=== PATIENT | female | born 1995 | race Caucasian/White ===

== ENCOUNTER → 2016-12-14 | Outpatient (CLI) | payer BC ==
[2016-12-14 15:28] LABS: BASO % 0.3 %; BASO ABS # 0.03 K/uL (0-0.2); COMPLETE YES; EOS % 0.6 %; HEMATOCRIT 36.7 % (37-47); IG% 0.2 %; LYMPH % 26.4 %; LYMPH ABS # 2.97 K/uL (1.2-3.4); MEAN CELL VOLUME 93.9 fL (80-100); MEAN CORPUSCULAR HEMOGLOBIN 31.7 pg (25-34); MEAN CORPUSCULAR HGB CONC 33.8 g/dl (32-36); MEAN PLATELET VOLUME 10.4 fL (7.4-10.4); MONO % 9.3 %; NEUT % 63.2 %; PLATELET COUNT 311 K/uL (130-400); RED BLOOD COUNT 3.91 M/uL (4.2-5.4); WHITE BLOOD COUNT 11.24 K/uL (4.8-10.8)
[2016-12-14 16:00] LABS: ALT/SGPT 18 U/L (12-78); BLOOD UREA NITROGEN 16 mg/dl (7-18); BUN/CREATININE RATIO 25.2 (10-20); CALCIUM 9.6 mg/dl (8.5-10.1); CARBON DIOXIDE 26 mmol/L (21-32); CHLORIDE 106 mmol/L (98-107); CREATININE 0.62 mg/dl (0.60-1.20); GLUCOSE 75 mg/dl (70-99); MAGNESIUM 1.9 mg/dl (1.8-2.4); POTASSIUM 4.1 mmol/L (3.5-5.1); SODIUM 141 mmol/L (136-145)
[2016-12-14 16:10] LABS: ALKALINE PHOSPHATASE 64 U/L (45-117); AST/SGOT 20 U/L (15-37); FERRITIN 22.7 ng/ml (8.0-388.0)
== END | disposition home or self-care (01) ==
LOC: C.LAB1850 14:26
PROVIDERS: ATTEND Nurse Practitioner Family
DX: E55.9 Vitamin D deficiency, unspecified (principal); R07.9 Chest pain, unspecified

== ENCOUNTER 2018-01-22 06:36 | Emergency (ER) | payer BC ==
[~2018-01-22] VITALS: Ht 152.4 cm; Wt 61.7 kg
[2018-01-22 07:25] VITALS: Ht 152.4 cm; Wt 61.7 kg
[2018-01-22] MEDS ORDERED: ONDANSETRON 4MG OD TAB PO ONE (07:30)
[2018-01-22 07:53] LABS: BASO % 0.3 %; BASO ABS # 0.03 K/uL (0-0.2); EOS % 0.5 %; EOS ABS # 0.05 K/uL (0-0.5); HEMATOCRIT 38.2 % (37-47); HEMOGLOBIN 13.1 g/dL (12.0-16.0); IG# 0.02 K/uL (0.00-0.02); LYMPH % 23.1 %; LYMPH ABS # 2.13 K/uL (1.2-3.4); MEAN CELL VOLUME 95.7 fL (80-100); MEAN CORPUSCULAR HEMOGLOBIN 32.8 pg (25-34); MEAN CORPUSCULAR HGB CONC 34.3 g/dl (32-36); MEAN PLATELET VOLUME 9.9 fL (7.4-10.4); MONO % 7.7 %; MONO ABS # 0.71 K/uL (0.11-0.59); NEUT % 68.2 %; NEUT ABS # 6.28 K/uL (1.4-6.5); PLATELET COUNT 307 K/uL (130-400); RED CELL DISTRIBUTION WIDTH CV 13.1 % (11.5-14.5); RED CELL DISTRIBUTION WIDTH SD 45.9 fL (36.4-46.3); WHITE BLOOD COUNT 9.22 K/uL (4.8-10.8)
[2018-01-22 08:16] LABS: CALCIUM 8.9 mg/dl (8.5-10.1); CREATININE 0.65 mg/dl (0.60-1.20); POTASSIUM 3.3 mmol/L (3.5-5.1)
--- NOTE | 2018-01-22 09:16 | DIAGNOSTIC IMAGING REPORT ---
LIMITED (US) CLINICAL HISTORY: Positive test. Cramping. COMPARISON STUDY: No previous studies for comparison. TECHNIQUE: Transabdominal and transvaginal sonography of the pelvis was performed. FINDINGS: The uterus measures 9.3 x 3 x 4.5 cm. No intrauterine gestational sac is noted. Endometrium measures 2.1 cm in thickness. No adnexal mass is identified. A small amount of simple appearing fluid is noted within the pelvis. The right ovary measures 3 x 1.7 x 2.2 cm and the left measures 3.1 x 2.1 x 2.2 cm. There is color flow within each ovary. A 2.4 cm hypoechoic left ovarian lesion is noted. IMPRESSION: 1. No intrauterine gestational sac identified. Thickened endometrium, measuring 2.1 cm. Given positive test, differential considerations include a normal early intrauterine gestation, missed spontaneous and sonographically occult ectopic . Close clinical follow-up including serial beta hCG levels and follow-up pelvic ultrasound is recommended. 2. Suspected 2.4 cm left ovarian corpus luteal cyst. 3. Small amount of fluid within the pelvis. Electronically signed by: Nacho Mccracken M.D. 01/22/2018 9:14 AM Dictated Date/Time: 01/22/2018 9:09 AM
[2018-01-22 11:00] VITALS: BP 101/43; PULSE 81; TEMP 36.7; O2SAT 100
--- NOTE | 2018-01-22 15:07 | EMERGENCY ROOM VISIT NOTE ---
ED Visit Note First contact with patient: 06:53 Chief Complaint: Abdominal cramping, nausea and positive . History of Present Illness: Ms. Ayala is a 22 year-old female who ambulates into the ED complaining of mid lower abdominal pain. Historically patient reports she has a history of polycystic ovary syndrome. Patient is para 0, 0. Her last menstrual cycle ended December 15; patient reports this was normal duration and intensity for her. Patient reports a acute onset of mid lower quadrant abdominal pain that woke her from sleep this morning and started approximately 2 hours ago. Since that time the pain has been constant but intermittent. The pain is currently described as cramping. The pain is nonradiating. She rates her discomfort 2/ 10. She has not identified any aggravating or alleviating factors related to her discomfort. She has not taken any medications for her discomfort prior to arrival at the hospital. Associated with the pain there has been nausea without vomiting. Additionally she reports she has a small amount of whitish vaginal discharge; she reports this is normal and starts prior to her menstrual cycle. Patient denies fevers, chills, sweats, skin eruptions, skin color changes, upper respiratory tract symptoms, shortness of breath, chest pain, diarrhea, constipation, rectal bleeding, black/tarry stools, urinary symptoms, hematuria, vaginal bleeding, painful intercourse, postcoital bleeding, back/flank pain. Review of Systems: As noted above in history of present illness. All body systems were reviewed and found to be negative as noted above. Past Medical History: As previously noted, asthma, status post tonsillectomy. Current Medications: Patient denies. Allergies to Medications: Patient denies. Social History: Patient is currently employed; she lives with her and feels safe in her home environment; she denies tobacco and alcohol use. Physical Examination: Vital Signs: Date Time Temp Pulse Resp B/P (MAP) Pulse Ox O2 Delivery O2 Flow Rate FiO2 01/22/18 11:00 36.7 81 20 101/43 100 01/22/18 10:41 81 20 101/43 01/22/18 10:36 86 24 01/22/18 10:31 81 25 01/22/18 10:26 85 24 01/22/18 10:21 82 23 01/22/18 10:16 83 22 01/22/18 10:11 103 15 01/22/18 10:06 108 20 4/9/18 10:01 80 20 01/22/18 09:56 83 19 01/22/18 09:51 110 20 01/22/18 09:46 80 21 01/22/18 09:43 69 18 99/63 01/22/18 09:41 81 24 01/22/18 09:36 85 22 01/22/18 09:31 85 14 01/22/18 09:28 99/63 01/22/18 08:11 93 26 01/22/18 08:06 90 22 01/22/18 08:01 90 24 01/22/18 07:56 93 26 01/22/18 07:51 123 24 01/22/18 07:46 85 16 01/22/18 07:41 90 21 01/22/18 07:37 99 01/22/18 07:36 119 22 197/117 01/22/18 06:40 36.7 105 18 129/75 100 Room Air GENERAL: 22-year-old female in mild distress due to symptoms, nontoxic-appearing , afebrile and hemodynamically stable. NEUROLOGICAL: Awake, alert and oriented to person, place and time. Answering questions appropriately and following commands. Normal gait. Good hand eye coordination. SKIN: Warm, dry and pink. No soft tissue eruptions or trauma noted. HEENT: Atraumatic and normocephalic. PERRLA. Sclera white and conjunctiva pink. Oral cavity moist and pink. Pharynx is nonerythematous or edematous. Speech normal. No lymphadenopathy. Trachea midline. No jugular venous distention. BACK: No tenderness over the bony spine. No CVA tenderness. THORAX: Lungs sounds are clear to auscultation and equal bilaterally with symmetrical chest wall. No wheezing, rales or rhonchi. No crepitus, tenderness , subcutaneous air or deformities noted. HEART: Regular rate and rhythm. No gallops, rubs or murmurs are appreciated. ABDOMEN: Flat, soft and nontender. Positive bowel sounds in all quadrants. No guarding, rigidity or organomegaly. EXTREMITIES: Moves all extremities well on command and with purpose. All distal neurovascular statuses are intact and equal bilaterally. ED Course: Patient is assessed as noted above. Laboratory Testing: Test 01/22/18 06:50 01/22/18 06:52 01/22/18 07:35 Range/Units Urine Color YELLOW Urine Appearance CLOUDY CLEAR Urine pH 7.0 4.5-7.5 Urine Specific [place] 1.023 1.000-1.030 Urine Protein NEG NEG Urine Glucose (UA) NEG NEG Urine Ketones NEG NEG Urine Occult Blood 1+ NEG Urine Nitrite NEG NEG Urine Bilirubin NEG NEG Urine Urobilinogen NEG NEG Urine Leukocyte Esterase MODERATE NEG Urine WBC (Auto) 10-30 0-5 /hpf Urine RBC (Auto) 10-30 0-4 /hpf Urine Hyaline Casts (Auto) 5-10 0-5 /lpf Urine Epithelial Cells (Auto) >30 0-5 /lpf Urine Bacteria (Auto) 2+ NEG Human Chorionic Gonadotropin, Quant 57 mIU/mL White Blood Count 9.22 4.8-10.8 K/uL Red Blood Count 3.99 4.2-5.4 M/uL Hemoglobin 13.1 12.0-16.0 g/dL Hematocrit 38.2 37-47 % Mean Corpuscular Volume 95.7 80-100 fL Mean Corpuscular Hemoglobin 32.8 25-34 pg Mean Corpuscular Hemoglobin Concent 34.3 32-36 g/dl Platelet Count 307 130-400 K/uL Mean Platelet Volume 9.9 7.4-10.4 fL Neutrophils (%) (Auto) 68.2 % Lymphocytes (%) (Auto) 23.1 % Monocytes (%) (Auto) 7.7 % Eosinophils (%) (Auto) 0.5 % Basophils (%) (Auto) 0.3 % Neutrophils # (Auto) 6.28 1.4-6.5 K/uL Lymphocytes # (Auto) 2.13 1.2-3.4 K/uL Monocytes # (Auto) 0.71 0.11-0.59 K/uL Eosinophils # (Auto) 0.05 0-0.5 K/uL Basophils # (Auto) 0.03 0-0.2 K/uL RDW Standard Deviation 45.9 36.4-46.3 fL RDW Coefficient of Variation 13.1 11.5-14.5 % Immature Granulocyte % (Auto) 0.2 % Immature Granulocyte # (Auto) 0.02 0.00-0.02 K/uL Prothrombin Time 10.4 9.0-12.0 SECONDS Prothromb Time International Ratio 1.0 0.9-1.1 Activated Partial Thromboplast Time 26.0 21.0-31.0 SECONDS Partial Thromboplastin Ratio 1.0 Sodium Level 137 136-145 mmol/L Potassium Level 3.3 3.5-5.1 mmol/L Chloride Level 106 98-107 mmol/L Carbon Dioxide Level 25 21-32 mmol/L Anion Gap 6.0 3-11 mmol/L Blood Urea Nitrogen 9 7-18 mg/dl Creatinine 0.65 0.60-1.20 mg/dl Est Creatinine Clear Calc Drug Dose 111.4 ml/min Estimated GFR () 146.1 Estimated GFR (Non- 126.0 BUN/Creatinine Ratio 13.0 10-20 Random Glucose 88 70-99 mg/dl Calcium Level 8.9 8.5-10.1 mg/dl ultrasound: Was reviewed by myself and read by the radiologist showing no intrauterine gestational sac identified, thickened endometrium measuring 2.1 cm , suspected 2.4 cm left ovarian corpus luteum cyst and small amount of free fluid within the pelvis. Initially an IV lock was started and patient received 4 mg of Zofran ODT; patient was offered pain medication and refused. Patient was reassessed multiple times during her stay in the emergency department. Patient's case was reviewed with Dr. Britt; we agreed on diagnostic approach, treatment, disposition and plan. Patient's case was consulted with Dr. Quoc Morel, motion graphics designer; she recommended office follow-up visit with repeat quantitative beta-hCG in 2 days. Patient was educated about today's findings and instructed on her treatment plan ; she verbalized understanding and agreement with this plan. Clinical Impression: Abdominal pain. . Decision-Making: Initially my differential diagnosis I considered acute appendicitis, ovarian torsion, ovarian cyst rupture, ectopic , cystitis and other causes. Disposition: Patient discharged home in stable condition; prior to departure she was reassessed and subjectively reported and subjectively reported she was feeling better and rated her discomfort 2/10 and reported resolution of nausea. Plan: Patient was encouraged to use 650 mg of acetaminophen every 6 hours as needed for pain and avoid NSAIDs. Patient was encouraged to continue with her normal daily activities. Patient was encouraged to start an [id number] multivitamin. Patient was informed that Dr. Morel's office would contact her for office follow -up in 2 days. Patient was encouraged to return the ED for worsening/uncontrolled pain, uncontrolled nausea/vomiting, vaginal bleeding or any new/concerning symptoms.
== END 2018-01-22 11:00 | disposition home or self-care (01) ==
LOC: C.EDB 06:37
DX: R10.30 Lower abdominal pain, unspecified (principal); Z32.01 Encounter for pregnancy test, result positive; E28.2 Polycystic ovarian syndrome; J45.909 Unspecified asthma, uncomplicated

== ENCOUNTER → 2018-01-24 | Outpatient (CLI) | payer BC | END | disposition home or self-care (01) | LOC: C.LAB1850 07:38 | PROVIDERS: ATTEND Obstetrics & Gynecology | DX: O36.80X0 Pregnancy with inconclusive fetal viability, not applicable or unspecified (principal) ==

== ENCOUNTER → 2018-02-19 | Outpatient (CLI) | payer BC | END | disposition home or self-care (01) | LOC: C.LABSPEC 10:52 | PROVIDERS: ATTEND Obstetrics & Gynecology | DX: Z34.01 Encounter for supervision of normal first pregnancy, first trimester (principal) ==

== ENCOUNTER → 2018-02-27 | Outpatient (CLI) | payer BC | END | disposition home or self-care (01) | LOC: C.PAPS 13:58 | PROVIDERS: ATTEND Obstetrics & Gynecology | DX: Z34.01 Encounter for supervision of normal first pregnancy, first trimester (principal); Z3A.00 Weeks of gestation of pregnancy not specified ==

== ENCOUNTER → 2018-02-27 | Outpatient (CLI) | payer BC ==
[2018-02-27 12:22] LABS: BASO % 0.1 %; BASO ABS # 0.01 K/uL (0-0.2); EOS % 1.4 %; EOS ABS # 0.16 K/uL (0-0.5); HEMATOCRIT 35.4 % (37-47); HEMOGLOBIN 12.1 g/dL (12.0-16.0); IG# 0.03 K/uL (0.00-0.02); LYMPH % 15.1 %; LYMPH ABS # 1.71 K/uL (1.2-3.4); MEAN CELL VOLUME 94.7 fL (80-100); MEAN CORPUSCULAR HEMOGLOBIN 32.4 pg (25-34); MEAN CORPUSCULAR HGB CONC 34.2 g/dl (32-36); MONO % 11.6 %; MONO ABS # 1.31 K/uL (0.11-0.59); NEUT % 71.5 %; NEUT ABS # 8.09 K/uL (1.4-6.5); PLATELET COUNT 322 K/uL (130-400); RED CELL DISTRIBUTION WIDTH SD 44.7 fL (36.4-46.3); WHITE BLOOD COUNT 11.31 K/uL (4.8-10.8)
== END | disposition home or self-care (01) ==
LOC: C.LAB1850 10:49
PROVIDERS: ATTEND Obstetrics & Gynecology
DX: Z34.01 Encounter for supervision of normal first pregnancy, first trimester (principal); Z3A.00 Weeks of gestation of pregnancy not specified

== ENCOUNTER 2021-01-25 07:38 | Inpatient (IN) ==
[2021-01-25] MEDS ORDERED: OXYTOCIN 30 UNITS/500 ML BAG IV PRN ×3 (07:48→20:27)
--- NOTE | 2021-01-25 08:02 | History & Physical Report ---
Date of Service January 25, 2021 Assessment & Plan (1) Encounter for induction of labor: PNL: Rh pos, RI, GBS neg, COVID negative Admit, labs, start IV Epidural when desired; anesthesiology consult placed Proceed with induction of labor per Pitocin augmentation protocol. Anticipate (2) Proteinuria affecting : CMP on admission Vital signs stable Admission and Anticipated Discharge Date Admission Date: January 25, 2021 History of Present Illness Primary Care Provider: Rhina Olsen DO Nancy Ayala is a 25 y/o female currently at 39 +2 WGA with an CHARLES 01/30/21 as determined by US #1 who is here for IOL. Her was complicated by gestational proteinuria. She does report an episode of headache with associated blurred vision x1 about 1 week ago but this episode resolved after taking Tylenol; no recurrent or persistent headaches or vision changes. No BARBER or vision changes at this time. + bilateral pedal edema; no associated calf pain or swelling. No abdominal pain. - contractions; + movement; - fluid loss; - bloody show Had regular appointments with OB. Blood type: A+ Antibody screen: neg Labs 06/19/2020 Rubella: immune VDRL/RPR: NR Gonorrhea: neg Chlamydia: neg HIV: neg HbSAg: neg GBS: negative 01/08/21 COVID-19 negative today (01/25/2021) Other screens: panorama 07/24/20 low risk Allergies Allergy/AdvReac Type Severity Reaction Status Date / Time No Known Allergies Allergy Verified 01/22/21 11:16 Home Medications Medication Instructions Recorded Confirmed Type Vitamin 1 tab PO DAILY 10/01/18 01/25/21 History Patient History Medical History Gestational proteinuria Surgical History Hx of tonsillectomy Family History (Updated 06/10/20 @ 08:03 by Shira Mills) Grandmother (Maternal) Diabetes Father Hypertension Grandfather (Maternal) Myocardial infarction Mother Preeclampsia labor Social History Smoking Status: Never smoker Second Hand Exposure: No; Hx Alcohol Use: No Hx Substance Use: No Preferred Language: Bulgarian Communication Ability: Effective Health And Wellness Coordinator Required: No Beliefs That Will Affect Care: None marital status: marital status details: Ashish (30) [phone] Current Living Situation: Family Current Living Situation Comment: lives with spouse, daughter, no pets. current occupational status: employed current occupation: [employer] Other Information That Helps Us Care for You: No Feels Safe at Home: Yes Safety Concerns: Feels Safe At This Time Assistive Devices: None Review of Systems Denies fever or chills. Denies shortness of breath or cough. Denies chest pain. Denies breast pain. Denies dysuria or hematuria. + bilateral pedal edema. Denies leg pain or leg swelling. Denies current headache or changes in vision (otherwise see HPI). Physical Exam Physical Exam: General: Alert, oriented. No acute distress. Cardiac: Regular rate and rhythm, no murmurs/rubs/gallops. Respiratory: Clear to auscultation bilaterally a/p, no wheezes/rales/rhonchi. No increased work of breathing. Symmetrical chest rise. No respiratory distress. Abdomen: Gravid. Vertex position. + heart tones. - palpable contractions. EFW 7-8# Pelvic: Dilation 3 cm; Effacement 50%; Station -2; mid and moderate per Dr. Wayne External FHT and external uterine monitors used; Category I tracing; mod. FHT variability. Lower Extremities: 1-2+ bilateral pedal edema. No deep calf pain. Results & Data ([facility]) Vital Signs (Past 12 Hours) Vital Signs Pulse BP 01/25/21 07:53 112 H 119/76 Laboratory Results Labs at admission today 01/25/21 01/25/21 01/25/21 Range/Units 08:23 08:23 08:04 WBC (4.8-10.8) K/uL RBC (4.2-5.4) M/uL Hgb (12.0-16.0) g/dL Hct (37-47) % MCV (80-100) fL MCH (25-34) pg MCHC (32-36) g/dL RDW Std Deviation (36.4-46.3) fL RDW Coeff of Osmar (11.5-14.5) % Plt Count (130-400) K/uL MPV (7.4-10.4) fL Sodium 139 (136-145) mmol/L Potassium 3.3 L (3.5-5.1) mmol/L Chloride 108 H (98-107) mmol/L Carbon Dioxide 23 (21-32) mmol/L Anion Gap 8.0 (3-11) BUN 6 L (7-18) mg/dl Creatinine 0.37 L (0.6-1.2) mg/dl Est Cr Clr Drug Dosing 224.7 ml/min Est GFR ( Amer) > 150.0 Est GFR (Non-Af Amer) 148.5 BUN/Creatinine Ratio 15.9 (10-20) Glucose 96 (70-99) mg/dl Calcium 8.7 (8.5-10.1) mg/dl Total Bilirubin 0.3 (0.2-1) mg/dl AST 16 (15-37) U/L ALT 15 (12-78) U/L Alkaline Phosphatase 167 H (45-117) U/L Total Protein 6.4 (6.4-8.2) gm/dl Albumin 2.5 L (3.4-5.0) gm/dl Globulin 3.9 (2.5-4.0) gm/dl Albumin/Globulin Ratio 0.6 L (0.9-2) COVID-19 Eval Order Covid19 IDNow atMRIC SARS-CoV-2, RNA, NAAT NEGATIVE (NEGATIVE) 01/25/21 Range/Units 08:02 WBC 11.20 H (4.8-10.8) K/uL RBC 3.68 L (4.2-5.4) M/uL Hgb 10.8 L (12.0-16.0) g/dL Hct 33.1 L (37-47) % MCV 89.9 (80-100) fL MCH 29.3 (25-34) pg MCHC 32.6 (32-36) g/dL RDW Std Deviation 46.8 H (36.4-46.3) fL RDW Coeff of Osmar 14.3 (11.5-14.5) % Plt Count 339 (130-400) K/uL MPV 10.0 (7.4-10.4) fL Sodium (136-145) mmol/L Potassium (3.5-5.1) mmol/L Chloride (98-107) mmol/L Carbon Dioxide (21-32) mmol/L Anion Gap (3-11) BUN (7-18) mg/dl Creatinine (0.6-1.2) mg/dl Est Cr Clr Drug Dosing ml/min Est GFR ( Amer) Est GFR (Non-Af Amer) BUN/Creatinine Ratio (10-20) Glucose (70-99) mg/dl Calcium (8.5-10.1) mg/dl Total Bilirubin (0.2-1) mg/dl AST (15-37) U/L ALT (12-78) U/L Alkaline Phosphatase (45-117) U/L Total Protein (6.4-8.2) gm/dl Albumin (3.4-5.0) gm/dl Globulin (2.5-4.0) gm/dl Albumin/Globulin Ratio (0.9-2) COVID-19 Eval Order SARS-CoV-2, RNA, NAAT (NEGATIVE) Code Status & VTE Plan VTE Prophylaxis Plan VTE Prophylaxis will be ordered: No Supervising Physician Co-Signing Physician Notes Resident Physician Supervision Note: I interviewed and examined the patient. Discussed with Dr. Barron and agree with findings and plan as documented in the note. Any exceptions or clarifications are listed here: Patient is a with gestational proteinuria. No s/s of pet as of yet, labs have all been negative. In her last , she developed proteinuria just like this and then eventually diagnosed with pet. She now presents for induction for this at 39 2/7. cx favorable. fetus category one. pitocin induction and arom as indicated. Epidural on demand. Anticipate . Labs all normal today. Dips trace protein. A few weeks ago dipped +1 and 24 hour urine was 400mg. Monday in the office dipped +2 but pressures normal and labs normal. Documented By: Caroline Wayne MD, FACOG Resident Activity Tracking Resident Involvement: Resident Care Provided Care Provided: OB Delivery
[2021-01-25 08:14] LABS: Hematocrit (blood only) 33.1 % (37-47); Hemoglobin 10.8 g/dL (12.0-16.0); Mean Corpuscular Hemoglobin 29.3 pg (25-34); Mean Corpuscular Hgb Conc 32.6 g/dL (32-36); Mean Corpuscular Volume 89.9 fL (80-100); Platelet Count 339 K/uL (130-400); RDW Coefficient of Variation 14.3 % (11.5-14.5); RDW Standard Deviation 46.8 fL (36.4-46.3); Red Blood Count 3.68 M/uL (4.2-5.4)
[2021-01-25 08:31] LABS: Alanine Aminotransferase 15 U/L (12-78); Albumin Level 2.5 gm/dl (3.4-5.0); Aspartate Aminotransferase 16 U/L (15-37); BUN Creatinine Ratio 15.9 (10-20); Blood Urea Nitrogen 6 mg/dl (7-18); Calcium 8.7 mg/dl (8.5-10.1); Carbon Dioxide 23 mmol/L (21-32); Chloride 108 mmol/L (98-107); Creatinine Clr Calc Pharmacy 224.7 ml/min; Est GFR (African American) > 150.0; Est GFR (Non-African American) 148.5; Glucose 96 mg/dl (70-99); Potassium 3.3 mmol/L (3.5-5.1); Sodium 139 mmol/L (136-145)
[2021-01-25 08:34] LABS: Albumin Globulin Ratio 0.6 (0.9-2); Alkaline Phosphatase 167 U/L (45-117); Bilirubin,Total 0.3 mg/dl (0.2-1); Globulin 3.9 gm/dl (2.5-4.0); Total Protein 6.4 gm/dl (6.4-8.2)
[2021-01-25] MEDS: LACTATED RINGER'S 1,000 ML IV PRN ×3 (08:51→18:59)
[2021-01-25] MEDS ORDERED: SODIUM CHLORIDE 0.9% INJ 10 ML VIAL ONE (11:23)
[2021-01-25] MEDS ORDERED: ePHEDrine sulfate 50 MG/ML AMP ONE (11:23)
[2021-01-25] MEDS ORDERED: fentaNYL 2MCG/ML ROPIVACAINE 1.25MG/ML 100 ML BAG EPI ONE (11:24)
[2021-01-25] MEDS ORDERED: fentaNYL citrate 100 MCG/2 ML VIAL ONE (11:24)
[2021-01-25] MEDS ORDERED: BUPIVACAINE 0.25% 30 ML VIAL ONE (11:24)
--- NOTE | 2021-01-25 11:49 | Anesthesiology Consultation ---
Date of Service January 25, 2021 Assessment & Plan (1) Encounter for pre-operative examination: Chart Review Chart Review: Acceptable Risk for Labor Epidural History Height/Weight Height: 5 ft Weight: 84.822 kg Allergies Allergy/AdvReac Type Severity Reaction Status Date / Time No Known Allergies Allergy Verified 01/22/21 11:16 Medications Home Medications Medication Instructions Recorded Confirmed Last Taken Vitamin 1 tab PO DAILY 10/01/18 01/25/21 09/30/18 08:00 Active Medications Generic Name Dose Route Start Last Admin Trade Name Freq PRN Reason Stop Dose Admin Oxytocin 30 units in 500 mls @ 7 mls/hr 01/25/21 07:48 01/25/21 11:00 Pitocin IV 01/27/21 07:47 0.42 units/hr .Q24H PRN 7 mls/hr Labor Induction/Augmentation Titration Protocol 0.42 UNITS/HR Lactated Ringer's 1,000 mls @ 125 mls/hr 01/25/21 07:48 01/25/21 11:25 Lr IV 01/27/21 07:47 999 mls/hr .Q8H PRN Infusion L&D Protocol Protocol Past Medical History Medical History Gestational proteinuria Past Family History Family History Grandmother (Maternal) Diabetes Father Hypertension Grandfather (Maternal) Myocardial infarction Mother Preeclampsia labor Past Surgical History Surgical History Hx of tonsillectomy Social History Smoking Status: Never smoker Hx Alcohol Use: No Hx Substance Use: No substance use type: does not use Physical Exam Vital Signs Last Vital Signs Temp 36.7 C 01/25/21 10:56 Pulse 90 01/25/21 10:56 Resp 20 01/25/21 10:56 BP 113/77 01/25/21 10:56 Testing Laboratory Results 01/25/21 08:02 01/25/21 08:04
[2021-01-25] MEDS ORDERED: ONDANSETRON INJ 2 MG/ML 2 ML VIAL IV PRN (12:10)
[2021-01-25] MEDS ORDERED: ePHEDrine sulfate 50 MG/ML AMP IV PRN (12:10)
[2021-01-25] MEDS ORDERED: NALOXONE HCL 1 MG in SODIUM CHLORIDE 0.9% 1000ML 1,000 ML IV PRN (12:10)
[2021-01-25] MEDS ORDERED: NALOXONE HCL 0.4 MG/1 ML VIAL/CARP IV PRN (12:10)
--- NOTE | 2021-01-25 12:43 | Labor Progress Brief Note ---
Date of Service January 25, 2021 Subjective comfortable after epidural Assessment & Plan (1) Proteinuria affecting : (2) Encounter for induction of labor: Admission and Anticipated Discharge Date Admission Date: January 25, 2021 Continue current management. Fetus category one. anticipate . Physical Exam Constitutional: WD/WN, vitals as above Psychiatric: A+Ox3, euthymic affect Genitourinary: cx--3-4/50/-2 arom--copious clear efm--140s wtih mod variability, accels to 160s, no decels toco--q2-4min, pit at 7 Results & Data ([facility]) Vital Signs (Past 12 Hours) Vital Signs Temp Pulse Resp BP Pulse Ox 01/25/21 12:37 108 H 100 01/25/21 12:32 86 113/70 96 01/25/21 12:28 88 116/67 01/25/21 12:27 93 H 98 01/25/21 12:22 107 H 98 01/25/21 12:21 86 112/66 01/25/21 12:17 96 H 98 01/25/21 12:15 91 H 110/59 L 01/25/21 12:13 102 H 113/64 01/25/21 12:12 102 H 97 01/25/21 12:11 92 H 115/64 01/25/21 12:09 92 H 116/66 01/25/21 12:07 80 117/71 98 01/25/21 12:05 86 119/65 01/25/21 12:02 105 H 97 01/25/21 11:57 125 H 100 01/25/21 11:52 112 H 99 01/25/21 11:47 112 H 100 01/25/21 10:56 36.7 C 90 20 113/77 01/25/21 10:01 106 H 20 113/77 01/25/21 07:55 36.7 C 112 H 20 119/76 01/25/21 07:53 112 H 119/76 Coding Level of Care Code None Diagnoses Proteinuria affecting O12.10 Encounter for induction of labor Z34.90
[2021-01-25] MEDS: fentaNYL 2MCG/ML ROPIVACAINE 1.25MG/ML 100 ML BAG EPI PRN ×2 (16:47→18:18)
[2021-01-25] MEDS ORDERED: NURSING L&D Epidural Breakthrough Pain Update ONE (16:58)
--- NOTE | 2021-01-25 17:05 | Labor Progress Brief Note ---
Date of Service January 25, 2021 Subjective Is starting to note contractions but not pressure. Assessment & Plan (1) Encounter for induction of labor: Admission and Anticipated Discharge Date Admission Date: January 25, 2021 Continue current management. fetus catgory one. Anticipate . Physical Exam Constitutional: WD/WN, vitals as above Psychiatric: A+Ox3, euthymic affect Genitourinary: cx--6-7/100/-2 toco--q 2-3 min efm--category one strip, accels present Results & Data ([facility]) Vital Signs (Past 12 Hours) Vital Signs Temp Pulse Resp BP Pulse Ox 01/25/21 17:02 93 H 97 01/25/21 16:57 89 97 01/25/21 16:52 95 H 97 01/25/21 16:50 107 H 124/79 01/25/21 16:47 94 H 99 01/25/21 16:42 94 H 98 01/25/21 16:37 110 H 98 01/25/21 16:35 92 H 20 118/64 01/25/21 16:32 100 H 98 01/25/21 16:27 86 97 01/25/21 16:22 79 98 01/25/21 16:20 94 H 111/70 01/25/21 16:17 83 97 01/25/21 16:12 87 98 01/25/21 16:07 83 97 01/25/21 16:06 36.8 C 81 20 113/69 01/25/21 16:02 92 H 97 01/25/21 15:57 79 97 01/25/21 15:52 79 97 01/25/21 15:51 91 H 111/71 01/25/21 15:47 90 97 01/25/21 15:42 98 H 97 01/25/21 15:37 90 97 01/25/21 15:35 89 117/68 01/25/21 15:32 83 97 01/25/21 15:27 83 95 01/25/21 15:22 98 H 97 01/25/21 15:21 88 111/56 L 01/25/21 15:17 96 H 98 01/25/21 15:12 94 H 99 01/25/21 15:07 97 H 18 120/70 96 01/25/21 15:02 92 H 97 01/25/21 14:57 92 H 97 01/25/21 14:52 92 H 98 01/25/21 14:50 96 H 108/65 01/25/21 14:47 89 98 01/25/21 14:42 97 H 97 01/25/21 14:37 106 H 97 01/25/21 14:35 90 112/66 01/25/21 14:32 87 97 01/25/21 14:27 88 98 01/25/21 14:22 89 98 01/25/21 14:17 100 H 98 01/25/21 14:12 85 97 01/25/21 14:07 80 97 01/25/21 14:05 36.7 C 85 18 108/68 01/25/21 14:02 84 97 01/25/21 13:57 79 97 01/25/21 13:52 81 96 01/25/21 13:50 82 108/65 01/25/21 13:47 89 96 01/25/21 13:42 84 96 01/25/21 13:37 93 H 96 01/25/21 13:36 83 102/62 01/25/21 13:32 97 H 97 01/25/21 13:27 81 96 01/25/21 13:22 92 H 97 01/25/21 13:20 92 H 119/78 01/25/21 13:17 86 96 01/25/21 13:12 94 H 96 01/25/21 13:07 94 H 96 01/25/21 13:05 87 20 117/61 01/25/21 13:02 93 H 97 01/25/21 12:57 96 H 96 01/25/21 12:52 84 97 01/25/21 12:51 103 H 116/58 L 01/25/21 12:47 98 H 97 01/25/21 12:42 97 H 98 01/25/21 12:37 108 H 100 01/25/21 12:32 86 113/70 96 01/25/21 12:28 88 116/67 01/25/21 12:27 93 H 98 01/25/21 12:22 107 H 98 01/25/21 12:21 86 112/66 01/25/21 12:17 96 H 98 01/25/21 12:15 91 H 110/59 L 01/25/21 12:13 102 H 113/64 04/12/21 12:12 102 H 97 01/25/21 12:11 92 H 115/64 01/25/21 12:09 92 H 116/66 01/25/21 12:07 80 117/71 98 01/25/21 12:05 86 119/65 01/25/21 12:02 105 H 97 01/25/21 11:57 125 H 100 01/25/21 11:52 112 H 99 01/25/21 11:47 112 H 100 01/25/21 10:56 36.7 C 90 20 113/77 01/25/21 10:01 106 H 20 113/77 01/25/21 07:55 36.7 C 112 H 20 119/76 01/25/21 07:53 112 H 119/76 Coding Level of Care Code None Diagnoses Encounter for induction of labor Z34.90
--- NOTE | 2021-01-25 18:40 | Labor Progress Brief Note ---
Date of Service January 25, 2021 Subjective shivering but more comfortable Assessment & Plan (1) Encounter for induction of labor: Admission and Anticipated Discharge Date Admission Date: January 25, 2021 continue current management. fetus category 2 but very reassuring. anticipate . Physical Exam Constitutional: WD/WN, vitals as above Psychiatric: A+Ox3, euthymic affect Genitourinary: cx--9/100/0 toco--q2-3min, pit at 17 efm--130s wtih mod variability, accels present, variable/early with some contractions Results & Data ([facility]) Vital Signs (Past 12 Hours) Vital Signs Temp Pulse Resp BP Pulse Ox 01/25/21 18:37 172 H 100 01/25/21 18:32 87 99 01/25/21 18:27 126 H 100 01/25/21 18:22 112 H 99 01/25/21 18:17 107 H 98 01/25/21 18:13 106 H 122/67 01/25/21 18:12 102 H 122/70 98 01/25/21 18:10 81 126/79 01/25/21 18:08 88 132/66 01/25/21 18:07 91 H 99 01/25/21 18:06 36.9 C 94 H 22 117/70 01/25/21 18:02 95 H 95 01/25/21 17:57 101 H 97 01/25/21 17:52 93 H 98 01/25/21 17:50 89 110/50 L 01/25/21 17:47 101 H 98 01/25/21 17:42 94 H 98 01/25/21 17:37 96 H 96 01/25/21 17:35 96 H 109/63 01/25/21 17:32 94 H 96 01/25/21 17:27 113 H 97 01/25/21 17:22 96 H 97 01/25/21 17:20 96 H 113/66 01/25/21 17:17 88 97 01/25/21 17:12 97 H 96 01/25/21 17:07 96 H 20 120/73 97 01/25/21 17:02 93 H 97 01/25/21 16:57 89 97 01/25/21 16:52 95 H 97 01/25/21 16:50 107 H 124/79 01/25/21 16:47 94 H 99 01/25/21 16:42 94 H 98 01/25/21 16:37 110 H 98 01/25/21 16:35 92 H 20 118/64 01/25/21 16:32 100 H 98 01/25/21 16:27 86 97 01/25/21 16:22 79 98 01/25/21 16:20 94 H 111/70 01/25/21 16:17 83 97 01/25/21 16:12 87 98 01/25/21 16:07 83 97 01/25/21 16:06 36.8 C 81 20 113/69 01/25/21 16:02 92 H 97 01/25/21 15:57 79 97 01/25/21 15:52 79 97 01/25/21 15:51 91 H 111/71 01/25/21 15:47 90 97 01/25/21 15:42 98 H 97 01/25/21 15:37 90 97 01/25/21 15:35 89 117/68 01/25/21 15:32 83 97 01/25/21 15:27 83 95 01/25/21 15:22 98 H 97 01/25/21 15:21 88 111/56 L 01/25/21 15:17 96 H 98 01/25/21 15:12 94 H 99 01/25/21 15:07 97 H 18 120/70 96 01/25/21 15:02 92 H 97 01/25/21 14:57 92 H 97 01/25/21 14:52 92 H 98 01/25/21 14:50 96 H 108/65 01/25/21 14:47 89 98 01/25/21 14:42 97 H 97 01/25/21 14:37 106 H 97 01/25/21 14:35 90 112/66 01/25/21 14:32 87 97 01/25/21 14:27 88 98 01/25/21 14:22 89 98 01/25/21 14:17 100 H 98 01/25/21 14:12 85 97 01/25/21 14:07 80 97 01/25/21 14:05 36.7 C 85 18 108/68 01/25/21 14:02 84 97 01/25/21 13:57 79 97 01/25/21 13:52 81 96 01/25/21 13:50 82 108/65 01/25/21 13:47 89 96 01/25/21 13:42 84 96 01/25/21 13:37 93 H 96 01/25/21 13:36 83 102/62 01/25/21 13:32 97 H 97 01/25/21 13:27 81 96 01/25/21 13:22 92 H 97 01/25/21 13:20 92 H 119/78 01/25/21 13:17 86 96 01/25/21 13:12 94 H 96 01/25/21 13:07 94 H 96 01/25/21 13:05 87 20 117/61 01/25/21 13:02 93 H 97 01/25/21 12:57 96 H 96 01/25/21 12:52 84 97 01/25/21 12:51 103 H 116/58 L 01/25/21 12:47 98 H 97 01/25/21 12:42 97 H 98 01/25/21 12:37 108 H 100 01/25/21 12:32 86 113/70 96 01/25/21 12:28 88 116/67 01/25/21 12:27 93 H 98 01/25/21 12:22 107 H 98 01/25/21 12:21 86 112/66 01/25/21 12:17 96 H 98 01/25/21 12:15 91 H 110/59 L 01/25/21 12:13 102 H 113/64 01/25/21 12:12 102 H 97 01/25/21 12:11 92 H 115/64 01/25/21 12:09 92 H 116/66 01/25/21 12:07 80 117/71 98 01/25/21 12:05 86 119/65 01/25/21 12:02 105 H 97 01/25/21 11:57 125 H 100 01/25/21 11:52 112 H 99 01/25/21 11:47 112 H 100 01/25/21 10:56 36.7 C 90 20 113/77 01/25/21 10:01 106 H 20 113/77 01/25/21 07:55 36.7 C 112 H 20 119/76 01/25/21 07:53 112 H 119/76 Coding Level of Care Code None Diagnoses Encounter for induction of labor Z34.90
[2021-01-25] MEDS ORDERED: oxyCODONE/ACETAMINOPHEN 5mg/325mg TAB PO PRN (20:15)
--- NOTE | 2021-01-25 20:17 | Delivery Summary ---
Vaginal Delivery Summary Date of Service January 25, 2021 Pre-operative Diagnosis: at 39 2/7 gestational proteinuria Post-operative Diagnosis: same Procedure: pitocin induction epidural arom first degree laceration and repair EBL: 300cc Anesthesia: epidural Procedure: The patient pushed for 4-5 contractions to deliver a viable female infant in lizzeth position. The rest of the was then delivered without difficulty. The baby was vigorous. The nose and mouth were again bulb suctioned and the was placed in the maternal abdomen for drying and attention. Cord was clamped and cut at one minute of life. Cord blood and segment obtained. Placenta delivered spontaneous, intact with a three vessel cord. Cervix/sulci/rectum were intact. A first degree perineal laceration was repaired in the normal standard fashion. Hemostasis obtained with dilute pitocin and fundal massage. Apgars were 8/9. Mother and baby doing well at the end of the delivery. Vaginal Delivery Summary and 1st Degree [facility] Charge Vaginal Delivery Codes: 06704 global code for the antepartum, delivery, and post- Delivery Type Details: and 1st Degree L[facility]
[2021-01-25] MEDS ORDERED: ERYTHROMYCIN OP OINT 1 GM PKT ONE (20:21)
[2021-01-25] MEDS ORDERED: SUPERCREAM 0.870% 15 GM JAR EXT PRN (20:27)
[2021-01-25] MEDS ORDERED: bisacodyL 10 MG SUPP PR PRN (20:27)
[2021-01-25] MEDS ORDERED: DIPHTHERIA/TETANUS/PERTUSSIS 0.5 ML SYR/VIAL IM ONE (20:27)
[2021-01-25] MEDS ORDERED: ACETAMINOPHEN 325 MG TAB PO PRN (20:27)
[2021-01-25] MEDS ORDERED: HYDROCORTISONE ACETATE 25 MG SUPP PR PRN (20:27)
[2021-01-25] MEDS ORDERED: BENZOCAINE 20% AER SPR 82.5 GM CAN EXT PRN (20:27)
--- NOTE | 2021-01-25 21:32 | Anesthesia Procedure Note ---
Date of Service January 25, 2021 Anesthesia Post Epidural Note Vital Signs Vital Signs: Temp Pulse Resp BP Pulse Ox 37.6 C H 115 H 20 147/62 H 97 01/25/21 19:18 01/25/21 21:31 01/25/21 20:00 01/25/21 21:31 01/25/21 20:12 Pain Intensity Bilateral Lower Abdomen: Pain Intensity: 3 Notes Mental Status: alert / awake / arousable and participated in evaluation Nausea / Vomiting: adequately controlled Pain: adequately controlled Airway Patency, RR, SpO2: stable & adequate BP & HR: stable & adequate Hydration State: stable & adequate Neuraxial Anesthesia: was administered and sensory block is resolving Anesthetic Complications: no major complications apparent Epidural: Removed without complications and With tip intact
[2021-01-26 06:08] LABS: Hematocrit (blood only) 29.8 % (37-47); Hemoglobin 9.8 g/dL (12.0-16.0)
--- NOTE | 2021-01-26 06:39 | Obstetrical Progress Note ---
Date of Service <Meeganesh Stanford DO - Last Filed: 01/26/21 06:39> January 26, 2021 Assessment & Plan <Mee MKanu Stanford DO - Last Filed: 01/26/21 06:39> (1) state: - PPD #1 - PNL: Rh pos, RI, GBS neg, COVID neg - Feels well today. Eating well, voiding well, ambulating well. - Pain well controlled with ibuprofen 600mg Q4H PRN - Routine care -- OOB, ambulation, diet progression as tolerated - After discharge will have 6 week follow-up with Dr. Wayne. Subjective <Mee TraciKanu Stanford DO - Last Filed: 01/26/21 06:39> Nancy Ayala is a 25 y/o female who is PPD #1 following spontaneous vaginal delivery at 39 +2 weeks after IOL w/ complicated by gestational proteinuria. She reports feeling well overall this morning. Moderate abdominal cramping and 7/10 pain well managed on analgesics; cramping is increased with periods of and ambulation. Voiding without difficulty or dysuria. Tolerating meals overnight without difficulty, nausea, or vomiting. Patient has been able to ambulate some. Not yet passing gas. Has persistent lochia with some improvement this morning. Currently . Review of Systems Denies fever or chills. Denies shortness of breath or cough. Denies chest pain. Denies breast pain. Denies dysuria. Denies leg pain or leg swelling. Denies headache or changes in vision. Physical Exam <Mee Stanford DO - Last Filed: 01/26/21 06:39> General: Alert, oriented. No acute distress. Cardiac: Regular rate and rhythm. No murmurs. Respiratory: Clear to auscultation bilaterally a/p, no wheezes/rales/rhonchi. No increased work of breathing. Symmetrical chest rise. No respiratory distress. Abdomen: Soft, nontender, nondistended. Bowel sounds present. Uterus: Uterine fundus firm, palpable at umbilicus. Lower Extremities: No lower extremity edema or swelling. No deep calf pain. Nena's negative bilaterally. Results & Data ([facility]) <Mee Stanford DO - Last Filed: 01/26/21 06:39> Vital Signs (Past 12 Hours) Vital Signs Temp Pulse Pulse Resp BP BP Pulse Ox 01/26/21 03:35 36.9 C 94 H 20 128/83 98 01/25/21 23:00 37.4 C 99 H 20 118/73 97 01/25/21 22:11 107 H 127/71 01/25/21 22:10 37.2 C 18 01/25/21 22:01 110 H 126/66 01/25/21 21:51 99 H 124/62 01/25/21 21:41 106 H 124/62 01/25/21 21:40 18 01/25/21 21:31 115 H 147/62 H 01/25/21 21:21 102 H 132/61 01/25/21 21:11 109 H 133/76 01/25/21 21:10 18 01/25/21 21:09 103 H 127/77 01/25/21 20:55 18 01/25/21 20:51 106 H 128/78 01/25/21 20:41 111 H 118/58 L 01/25/21 20:40 18 01/25/21 20:31 104 H 114/56 L 01/25/21 20:25 18 01/25/21 20:21 111 H 114/57 L 01/25/21 20:12 113 H 119/57 L 97 01/25/21 20:10 18 01/25/21 20:07 115 H 96 01/25/21 20:02 116 H 95 01/25/21 20:00 20 01/25/21 19:57 134 H 98 01/25/21 19:52 127 H 98 01/25/21 19:47 165 H 99 01/25/21 19:45 18 01/25/21 19:44 139 H 124/71 01/25/21 19:42 116 H 99 01/25/21 19:37 112 H 98 01/25/21 19:32 98 H 98 01/25/21 19:30 109 H 18 118/72 01/25/21 19:27 114 H 99 01/25/21 19:22 98 H 97 01/25/21 19:18 37.6 C H 18 01/25/21 19:17 95 H 95 01/25/21 19:15 18 01/25/21 19:14 111 H 101/56 L 01/25/21 19:12 130 H 99 01/25/21 19:07 128 H 98 01/25/21 19:02 144 H 153/72 H 96 01/25/21 18:57 113 H 100 01/25/21 18:52 96 H 97 01/25/21 18:47 121 H 100 01/25/21 18:45 106 H 112/64 01/25/21 18:42 126 H 100 01/25/21 18:37 172 H 100 Laboratory Results 0555 this AM: Hgb 9.8, Hct 29.8 <Caroline Wayne MD, FACOG - Last Filed: 01/26/21 06:40> Co-Signing Physician Notes Resident Physician Supervision Note: I interviewed and examined the patient. Discussed with Dr. Stanford and agree with findings and plan as documented in the note. Any exceptions or clarifications are listed here: Doing well. Routine PP care. Documented By: Caroline Wayne MD, FACOG Resident Activity Tracking <Mee Stanford, DO - Last Filed: 01/26/21 06:39> Resident Involvement: Resident Care Provided Care Provided: OB Delivery
[2021-01-26] MEDS: DOCUSATE SODIUM 100 MG CAP PO SCH ×2 (08:29→20:27)
[2021-01-26] MEDS: PRENATAL VITAMIN 1 TAB PO SCH (08:29)
[2021-01-26] MEDS: IBUPROFEN 600 MG TAB PO PRN ×2 (08:49→17:56)
[2021-01-26] MEDS ORDERED: bisacodyL 5 MG TABEC PO SCH (20:00)
[2021-01-27] MEDS: IBUPROFEN 600 MG TAB PO PRN (07:59)
[2021-01-27] MEDS: DOCUSATE SODIUM 100 MG CAP PO SCH (07:59)
[2021-01-27] MEDS: PRENATAL VITAMIN 1 TAB PO SCH (07:59)
--- NOTE | 2021-01-27 08:57 | Obstetrical Progress Note ---
Date of Service <Mee Stanford DO - Last Filed: 01/27/21 08:57> January 27, 2021 Assessment & Plan <Mee Stanford DO - Last Filed: 01/27/21 08:57> (1) state: - PPD #2 - PNL: Rh pos, RI, GBS neg, COVID neg - Feels well today. Eating well, voiding well, ambulating well. - Pain well controlled with ibuprofen 600mg Q4H PRN - Routine care -- OOB, ambulation, diet progression as tolerated - After discharge will have 6 week follow-up with Dr. Wayne. - Plan for d/c home today. Subjective <Mee Stanford DO - Last Filed: 01/27/21 08:57> Nancy Ayala is a 25 y/o female who is PPD #2 following spontaneous vaginal delivery after IOL at 39 +2 weeks. She reports feeling well overall this morning. Minimal to no abdominal cramping and 0/10 pain well managed on analgesics. Voiding without difficulty or dysuria. Tolerating meals overnight without difficulty, nausea, or vomiting. Patient has been able to ambulate some. Has persistent lochia with some improvement this morning. Currently bottle feeding; decided that she no longer wishes to breastfeed; last breastfed around noon yesterday. Review of Systems Denies fever or chills. Denies shortness of breath or cough. Denies chest pain. Denies breast pain. Denies dysuria. Denies leg pain or leg swelling. Denies headache or changes in vision. Physical Exam <Mee Stanford DO - Last Filed: 01/27/21 08:57> General: Alert, oriented. No acute distress. Cardiac: Regular rate and rhythm. No murmurs. Respiratory: Clear to auscultation bilaterally a/p, no wheezes/rales/rhonchi. No increased work of breathing. Symmetrical chest rise. No respiratory distress. Abdomen: Soft, nontender, nondistended. Bowel sounds present. Uterus: Uterine fundus firm, palpable 1 cm below umbilicus. Lower Extremities: No lower extremity edema or swelling. No deep calf pain. Nena's negative bilaterally. Results & Data ([facility]) <Mee Stanford DO - Last Filed: 01/27/21 08:57> Vital Signs (Past 12 Hours) Vital Signs Temp Pulse Resp BP Pulse Ox 01/27/21 07:31 37 C 94 H 18 125/85 97 01/27/21 00:30 36.9 C 72 18 138/86 <Blessing Alonso MD, FACOG - Last Filed: 01/27/21 09:13> Co-Signing Physician Notes Resident Physician Supervision Note: I was present with Dr. Stanford during the history and exam. I discussed the case with the resident and agree with the findings and plan as documented in the note. Any exceptions or clarifications are listed here: [None] Documented By: Blessing Alonso MD, FACOG Resident Activity Tracking <Mee Stanford DO - Last Filed: 01/27/21 08:57> Resident Involvement: Resident Care Provided Care Provided: OB Delivery
== END 2021-01-27 13:35 | disposition home or self-care (01) | DRG 807 ==
LOC: 4S1 07:38 → 4S2 23:10